=== PATIENT | male | born 1980 | race Caucasian/White ===

== ENCOUNTER 2022-12-16 18:25 | Emergency (ER) | payer OTHER ==
[~2022-12-16] VITALS: Ht 203.2 cm; Wt 122.5 kg
--- NOTE | 2022-12-16 19:09 | ED Respiratory ---
General Chief Complaint: Cardiac/General Problems Stated Complaint: SOB Source: patient, family () Exam Limitations: no limitations History of Present Illness Date Seen by Provider: Dec 16, 2022 Time Seen by Provider: 18:48 Initial Comments Patient is a 42yo male to the ER with a complaint of shortness of breath. He has a history of severe valvular disease and is being worked up at [facility] for a repair. Was out walking at the store with his within the last 30min to an hour and became SOB. He denies chest pain. No recent fever or URI symptoms. The shortness of breath has resolved. He does not require the use of oxygen. No sick contacts. Had a heart cath last week at [facility] by Dr Encinas (in inter ventions done). No other complaints of recent illness or injury. Timing/Duration: just prior to arrival Severity: moderate Associated Symptoms: shortness of breath Allergies and Home Medications Patient Home Medication List Home Medication List Reviewed: Yes Review of Systems Review of Systems Constitutional: see HPI EENTM: no symptoms reported Respiratory: short of breath Cardiovascular: no symptoms reported Gastrointestinal: no symptoms reported Genitourinary: no symptoms reported Musculoskeletal: no symptoms reported Skin: no symptoms reported Psychiatric/Neurological: No Symptoms Reported All Other Systems Reviewed Negative Unless Noted: Yes Physical Exam Vital Signs - First Documented 12/16/22 18:32 Temp 36.4 Pulse 74 Resp 16 B/P (MAP) 149/86 (107) Pulse Ox 96 Capillary Refill : Height: '" Weight: lbs. oz. kg; BMI Method: General Appearance: WD/WN, no apparent distress Eyes: Bilateral Eye Normal Inspection, Bilateral Eye PERRL, Bilateral Eye EOMI HEENT: PERRL/EOMI, pharynx normal Neck: full range of motion, supple, normal inspection Respiratory: lungs clear, no respiratory distress, no accessory muscle use, decreased breath sounds (decreased throughout) Cardiovascular: regular rate, rhythm (80's and regular), systolic murmur (heard throughout the precordium), other (normal peripheral pulses) Gastrointestinal: non tender, soft Extremities: normal range of motion, normal inspection, no pedal edema, normal capillary refill Neurologic/Psychiatric: alert, normal mood/affect, oriented x 3 Skin: normal color, warm/dry Progress/Results/Core Measures Suspected Sepsis SIRS Temperature: Pulse: Respiratory Rate: Laboratory Tests 12/16/22 18:43: White Blood Count 5.9 Blood Pressure / Mean: Laboratory Tests 12/16/22 18:43: Creatinine 1.05, Platelet Count 136 Results/Orders Lab Results Laboratory Tests Test 12/16/22 18:43 Range/Units White Blood Count 5.9 4.3-11.0 10^3/uL Red Blood Count 5.08 4.30-5.52 10^6/uL Hemoglobin 15.7 13.3-17.7 g/dL Hematocrit 43 40-54 % Mean Corpuscular Volume 84 80-99 fL Mean Corpuscular Hemoglobin 31 25-34 pg Mean Corpuscular Hemoglobin Concent 37 H 32-36 g/dL Red Cell Distribution Width 11.5 10.0-14.5 % Platelet Count 136 130-400 10^3/uL Mean Platelet Volume 9.7 9.0-12.2 fL Immature Granulocyte % (Auto) 0 % Neutrophils (%) (Auto) 55 42-75 % Lymphocytes (%) (Auto) 36 12-44 % Monocytes (%) (Auto) 7 0-12 % Eosinophils (%) (Auto) 2 0-10 % Basophils (%) (Auto) 1 0-10 % Neutrophils # (Auto) 3.2 1.8-7.8 10^3/uL Lymphocytes # (Auto) 2.1 1.0-4.0 10^3/uL Monocytes # (Auto) 0.4 0.0-1.0 10^3/uL Eosinophils # (Auto) 0.1 0.0-0.3 10^3/uL Basophils # (Auto) 0.0 0.0-0.1 10^3/uL Immature Granulocyte # (Auto) 0.0 0.0-0.1 10^3/uL Percent Immature Platelet Fraction 2.2 0.0-7.6 % Sodium Level 140 135-145 MMOL/L Potassium Level 3.6 3.6-5.0 MMOL/L Chloride Level 108 H 98-107 MMOL/L Carbon Dioxide Level 22 21-32 MMOL/L Anion Gap 10 5-14 MMOL/L Blood Urea Nitrogen 15 7-18 MG/DL Creatinine 1.05 0.60-1.30 MG/DL Estimat Glomerular Filtration Rate 91 BUN/Creatinine Ratio 14 Glucose Level 106 H 70-105 MG/DL Calcium Level 8.7 8.5-10.1 MG/DL My Orders Orders - ANDREY LOPEZ MD Ekg Tracing (12/16/22 18:35) Cbc With Automated Diff (12/16/22 19:01) Basic Metabolic Panel (12/16/22 19:01) Chest 1 View, Ap/Pa Only (12/16/22 19:01) Vital Signs/I&O 12/16/22 12/16/22 18:32 20:04 Temp 36.4 Pulse 74 71 Resp 16 20 B/P (MAP) 149/86 (107) 119/78 Pulse Ox 96 97 Capillary Refill : Progress Note : Time: 19:45 Progress Note Patient seen and evaluated by me, 42-year-old male with shortness of breath. Evaluation today includes a physical exam, EKG, CBC, chemistry and single view CXR. Patient's physical exam is pertinent for clear lung sounds, Systolic heart murmur, No edema. Stable VS. DDx based on history and physical includes COPD exacerbation, STEMI, PE, Afib, COVID/viral syndrome, CHF. Patients labs reviewed - CBC - normal, BMP - normal. EKG NSR without ectopy or ST segment change. CXR clear. These are all very reassuring and together with history effectively rule out STEMI, AFib, Viral syndrome. Patient has no concerning complaints for Covid (testing considered however history/PE do not support need. Consideration for advanced imaging/ CT however, again, H&P do not support need. Patient has remained asymptommatic throughout hospital stay - no ongoing SOB or other complaints. reassurance provided. 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 return precautions provided. All questions are sought and answered. ECG Initial ECG Impression Date: Dec 16, 2022 Initial ECG Impression Time: 18:38 Initial ECG Rate: 68 Initial ECG Rhythm: Normal Sinus Initial ECG Intervals AZ 200 QRS 108 QTc 410 Initial ECG Impression: 1st Degree AV Block Comment Q waves noted in lead III. No ST segment elevation or depression. Borderline AZ prolongation consistent with first-degree AV block Diagnostic Imaging Diagonstic Imaging: Xray Plain Films/CT/US/NM/MRI: chest Comments [facility] [place], [place] NAME: COCO REED Shania [facility] REC#: [id number] PT STATUS: REG ER : 1980 PHYSICIAN: ANDREY LOPEZ MD ADMIT DATE: 12/16/22/ER Draft Date of Exam:12/16/22 CHEST 1 VIEW, AP/PA ONLY INDICATION: Shortness of breath. EXAMINATION: Chest, 12/16/2022. FINDINGS: There is mild cardiomegaly. Lungs and pleural spaces clear. No infiltrate or effusion. IMPRESSION: No acute cardiopulmonary process. Dictated on workstation # [id number] Dict: 12/16/221916 Trans: 12/16/221925 PJE [id number] Interpreted by: SARAI DUONG MD Electronically signed by: Departure Impression Primary Impression: Dyspnea Qualified Codes: R06.00 - Dyspnea, unspecified Additional Impression: histoy of mitral regurgitation Disposition: HOME, SELF-CARE Condition: Stable Departure-Patient Inst. Decision time for Depature: 19:53 Referrals: STUART RODRIGUEZ (PCP) Primary Care Physician Patient Instructions: Shortness of Breath (Dyspnea) Add. Discharge Instructions: Continue your daily medications as prescribed. Monitor your symptoms for any worsening or changing. Return to the emergency room for fever, shortness of breath, chest pain or any other emergent concerns. Keep your follow-up as scheduled with your bridge ironworker/cardiothoracic surgeon. ANDREY LOPEZ MD Dec 16, 2022 19:09
[2022-12-16 19:10] LABS: HEMOGLOBIN 15.7 g/dL (13.3-17.7)
[2022-12-16 19:12] LABS: BASOPHILS % (AUTO) 1 % (0-10); EOSINOPHILS # (AUTO) 0.1 10^3/uL (0.0-0.3); EOSINOPHILS % (AUTO) 2 % (0-10); HEMATOCRIT 43 % (40-54); LYMPHOCYTES # (AUTO) 2.1 10^3/uL (1.0-4.0); LYMPHOCYTES % (AUTO) 36 % (12-44); MEAN CORPUSCULAR HEMOGLOBIN 31 pg (25-34); MEAN CORPUSCULAR HGB CONC 37 g/dL (32-36); MEAN CORPUSCULAR VOLUME 84 fL (80-99); MEAN PLATELET VOLUME 9.7 fL (9.0-12.2); MONOCYTES # (AUTO) 0.4 10^3/uL (0.0-1.0); MONOCYTES % (AUTO) 7 % (0-12); NEUTROPHILS # (AUTO) 3.2 10^3/uL (1.8-7.8); NEUTROPHILS % (AUTO) 55 % (42-75); PLATELET COUNT 136 10^3/uL (130-400); POTASSIUM 3.6 MMOL/L (3.6-5.0); WHITE BLOOD COUNT 5.9 10^3/uL (4.3-11.0)
[2022-12-16 19:13] LABS: CALCIUM 8.7 MG/DL (8.5-10.1)
[2022-12-16 19:17] LABS: CREATININE SERUM 1.05 MG/DL (0.60-1.30)
--- NOTE | 2022-12-16 19:27 | Diagnostic Imaging Report ---
INDICATION: Shortness of breath. EXAMINATION: Chest, 12/16/2022. FINDINGS: There is mild cardiomegaly. Lungs and pleural spaces clear. No infiltrate or effusion. IMPRESSION: No acute cardiopulmonary process. Dictated by: Dictated on workstation # [email or web address]
[2022-12-16 20:04] VITALS: BP 119/78
== END 2022-12-16 20:05 | disposition home or self-care (01) ==
LOC: ER 18:29
DX: R06.00 Dyspnea, unspecified (principal); Z86.79 Personal history of other diseases of the circulatory system; Z28.310 Unvaccinated for COVID-19
CPT/HCPCS: 36415; 71045; 80048; 85025; 93005